=== PATIENT | male | born 1965 | race Caucasian/White ===

== ENCOUNTER → 2022-01-29 08:13 | Outpatient (REF) | payer OTHER, SELFPAY ==
--- NOTE | ~2022-01-29 | NM_ITS ---
Myocardial perfusion study Indication: Shortness of breath and abnormal EKG to evaluate for myocardial ischemia Technique: The patient was brought in for a Lexiscan perfusion study on 01/29/2022. Patient performed low-level exercise and was injected 0.4 mg of Lexiscan intravenously. Within a minute of injection, 25 mCi of sestamibi was given intravenously. Images were obtained using the SPECT gamma camera interlaced with the gating device. Images were obtained in supine position. Resting perfusion study was performed on 01/30/2022. Patient was administered 25 mCi of sestamibi intravenously at rest. Images were then obtained in supine position. Images obtained with and without CT attenuation. Total DLP 85 mGy-cm Images were processed with the software and compared side to side in short axis, horizontal long axis and vertical long axis views. Findings: The stress perfusion study showed non attenuated images show mildly to moderately reduced uptake in the inferior wall of the LV myocardium. Remainder of the LV myocardium is normally perfused. Attenuation corrected images shows diffusely reduced uptake in the entire LV myocardium with severely reduced uptake in the apex of the LV myocardium. This finding appeared to be due to technical issues.. The gated study shows low normal LV systolic function with calculated LVEF of 50%. LV cavity is mildly dilated size. The gated study shows reduced wall thickening and contraction of basal and mid inferior segments. Resting study shows non attenuated showed not much improvement in inferior wall of the LV myocardium.. Gating at rest reveals basal and mid inferior wall motion abnormality with visually estimated ejection fraction at greater than 50 %. The findings are consistent with fixed inferior wall defect on non attenuated images corresponding regional wall motion abnormality suggestive of nontransmural infarct of the segment. There is no clear reversible ischemia on non attenuated images. Attenuation corrected. NM/NM nery perf SPECT rest & str Impression: 1. Myocardial perfusion imaging study shows suggestion of nontransmural infarct of the basal and mid inferior wall 2. Gated LVEF is 50% 3. Transient ischemic dilatation not present but LV cavity is dilated EKG nondiagnostic for ischemia Recommend an echocardiogram to further evaluate the LV systolic function
--- NOTE | 2022-01-29 08:19 | CA_ITS ---
Acquisition Time: 2022-01-29 08:16:07 Total Exercise Time: 00:02:00 Test Indications: ABN EKG Medications: SEE CHART Protocol: LEXISCAN Max HR: 141 BPM 84% of Pred: 166 BPM Max BP: 152/078 mmHG Max Work Load: 1.0 METS Pharmacological stress test with Lexiscan injection, while laying supine, without anginal symptoms, with isolated PVCs with runs of bigeminy and trigeminy, with normotensive response to injection, with nondiagnostic EKG for ischemia. In recovery he reported headache that was treated with Aminphylline 75mg IVP with resolution of symptom. Nuclear images pending. Test reviewed with Dr Tomas. Note: pt had sinus tachycardia, with PVCs rate 120s at baseline. He reports hyperthyroidism. Call placed to PCP, Dr Reid who states that pt has risk factors for CAD and to complete test with pharmacological agent, no exercise. Order changed to pharmacological nuclear stress test. Referred By: Conrad Reid Overread By: SENG THOMSON
== END ==
LOC: HO.CARD 08:13
PROVIDERS: PCP Internal Medicine; Visit Provider Internal Medicine
DX: I49.9 Cardiac arrhythmia, unspecified (principal); R94.31 Abnormal electrocardiogram [ECG] [EKG]
CPT/HCPCS: 78452; 93017; A9500; J0280; J2785

== ENCOUNTER 2023-02-22 13:57 | Outpatient (REF) | payer OTHER, SELFPAY ==
--- NOTE | ~2023-02-22 | US_ITS ---
EXAMINATION: US RETROPERITONEAL LIMITED (RENAL ONLY) CLINICAL INFORMATION: Acute kidney failure. COMPARISON: None available. TECHNIQUE: Grayscale and color imaging of the kidneys FINDINGS: RIGHT KIDNEY: 14.7 x 7.8 x 7.7 cm (SAG x AP x TRV). The kidney is normal in size, contour, and echogenicity. Renal cortical thickness is normal. Innumerable cysts suggestive of polycystic kidney disease. Largest cyst measures 5 x 3.3 x 4.7 cm. Some cysts contain thin septations. No calculi. No hydronephrosis. LEFT KIDNEY: 16.6 x 8.9 x 9.5 cm (SAG x AP x TRV). The kidney is normal in size, contour, and echogenicity. Renal cortical thickness is normal. Innumerable cysts suggestive of polycystic kidney disease. Largest cyst measures 6.9 x 4.8 x 6.3 cm. Some cysts contain thin septations. No calculi. No hydronephrosis. US/US renal BI IMPRESSION: Enlarged kidneys and multiple bilateral renal cysts suggestive of polycystic kidney disease.
== END 2023-02-22 13:58 | disposition home or self-care (01) ==
LOC: HO.US 13:57
PROVIDERS: Visit Provider Internal Medicine Nephrology
DX: N17.9 Acute kidney failure, unspecified (principal)
CPT/HCPCS: 76775

== ENCOUNTER 2023-04-10 11:49 | Outpatient (REF) | payer OTHER, SELFPAY ==
--- NOTE | ~2023-04-10 | MR_ITS ---
EXAMINATION: MR ABDOMEN WITHOUT CONTRAST CLINICAL INFORMATION: Assess kidney volumes. COMPARISON: Renal ultrasound 02/22/2023 TECHNIQUE: MR abdomen is performed without gadolinium contrast. FINDINGS: LUNG BASES: The visualized lung bases are unremarkable. LIVER, GALLBLADDER, AND BILIARY TREE: The imaged liver is normal in size and contour. No biliary ductal dilatation is present. The gallbladder is contracted. PANCREAS: No ductal dilatation. SPLEEN: Not enlarged. ADRENAL GLANDS: No adrenal mass. KIDNEYS AND URETERS: The kidneys are enlarged with the parenchyma near completely replaced by numerous T2 hyperintense lesions and some T1 hyperintense lesions. Further characterization of these lesions is limited by lack of intravenous contrast. No hydronephrosis or perinephric stranding. The right kidney measures 15.2 x 15.2 x 5.6 cm for a volume of 745 mL. The left kidney measures 15.3 x 15.3 x 8.1 cm for a volume of 884 mL. GASTROINTESTINAL TRACT: No bowel obstruction. No ascites or fluid collection. LYMPH NODES: No bulky abdominal lymphadenopathy. VASCULAR: Normal caliber abdominal aorta. MR/MR abdomen wo con IMPRESSION: Right renal volume 745 mL. Left renal volume 884 mL.
== END 2023-04-10 11:50 | disposition home or self-care (01) ==
LOC: HO.MRI 11:49
PROVIDERS: PCP Internal Medicine; Visit Provider Internal Medicine Nephrology
DX: N18.32 Chronic kidney disease, stage 3b (principal)
CPT/HCPCS: 74181

== ENCOUNTER 2024-06-26 10:55 | Outpatient (REF) | payer OTHER, SELFPAY ==
--- NOTE | ~2024-06-26 | US_ITS ---
EXAMINATION: US RETROPERITONEAL LIMITED (RENAL ONLY) CLINICAL INFORMATION: CKD. COMPARISON: Renal ultrasound 02/22/2023. Correlated to MRI abdomen dated April 10, 2023. TECHNIQUE: Real-time imaging of the kidneys using grayscale and color Doppler technique. FINDINGS: RIGHT KIDNEY: 15 x 8 x 6 cm (SAG x AP x TRV). . Volume is 345 cc. Multifocal, different sizes, well-defined thin wall anechoic lesions throughout the renal cortex without nodular components were flow on color Doppler interrogation, the largest measures 5 cm. No solid lesion. No hydronephrosis. LEFT KIDNEY: 16 x 6 x 6 cm (SAG x AP x TRV). Volume is 295 cc. Multifocal, different sizes, well-defined anechoic lesions throughout the parenchyma, the largest measures 7 cm. No nodular components. No flow on color Doppler interrogation. Probable thin septations. No hydronephrosis. No gross solid mass . BLADDER: Fluid-filled Prevoid bladder volume is 185 mL. US/US renal BI IMPRESSION: Bosniak type II cysts, bilaterally. No hydronephrosis in the right kidney. Please refer to the MRI abdomen.. Electronically signed by: Jeremie Cordero MD 07/30/2024 03:47 PM EDT
== END 2024-06-26 10:56 | disposition home or self-care (01) ==
LOC: HO.US 10:55
PROVIDERS: PCP Internal Medicine; Visit Provider Internal Medicine Nephrology
DX: N18.32 Chronic kidney disease, stage 3b (principal)
CPT/HCPCS: 76775

== ENCOUNTER → 2024-06-26 10:57 | Outpatient (BNV) | payer OTHER, SELFPAY | PROVIDERS: PCP Internal Medicine; Visit Provider Radiology Diagnostic Radiology | DX: N18.32 Chronic kidney disease, stage 3b (principal) | CPT/HCPCS: 76775 ==

== ENCOUNTER 2025-04-07 09:04 | Outpatient (REF) | payer OTHER, SELFPAY ==
--- NOTE | ~2025-04-07 | MR_ITS ---
EXAMINATION: MR ABDOMEN WITHOUT THEN WITH IV CONTRAST HISTORY: CKD Stage 4 COMPARISON: Comparison is made with the prior examination dated 04/10/2023. Correlation is also made with a renal ultrasound dated 06/19/2024. TECHNIQUE: Axial in and out of phase T1-weighted gradient echo, axial diffusion weighted, and axial and coronal HASTE T2 with fat saturation images were obtained through the abdomen. Subsequently, fat suppressed axial and coronal T1-weighted images were obtained after the intravenous administration of 8.5 mL Gadavist. Subtraction imaging was also performed. FINDINGS: Liver: There is no loss of signal intensity in the liver on opposed phase imaging to suggest steatosis. There is no enhancing liver mass. The hepatic and portal veins are patent. There is no intrahepatic biliary dilatation. Gallbladder/biliary tree: No gallstones are identified. The common bile duct is normal in caliber. No intraluminal filling defects are identified to suggest choledocholithiasis. Spleen: The spleen is unremarkable. Pancreas: There is pancreas divisum. The pancreas is otherwise unremarkable. There is no enhancing pancreatic mass. The pancreatic duct is normal in caliber. Adrenals: The adrenal glands are unremarkable. Kidneys: Again seen are innumerable bilateral renal cysts. These measure up to 4.3 cm on the right and 5.8 cm on the left. Many of the cysts are hypointense on T2-weighted images and hyperintense on T1-weighted images, consistent with proteinaceous or hemorrhagic content. No definite nodular enhancement of the cysts is seen. Again noted is moderate to marked renal parenchymal thinning. The appearance is similar to the prior study. There is no hydronephrosis. The right kidney measures approximately 14.2 x 10.4 x 11.9 cm. The left kidney measures approximately 12.7 x 11.1 x 10.7 cm. Lymph nodes: There is no retroperitoneal lymphadenopathy in the upper abdomen. Fluid: There is no ascites in the upper abdomen. Visualized bowel: The visualized bowels loops are unremarkable in appearance. Visualized bones: The visualized bones demonstrate normal marrow signal intensity. MR/MR abdomen wo/w con IMPRESSION: 1. Innumerable bilateral renal cysts, many of which contain proteinaceous or hemorrhagic content. No definite associated contrast enhancement. 2. Pancreas divisum. Electronically signed by: Sudheer Yu MD 04/07/2025 10:27 AM EDT RP
--- OUTSIDE RECORDS SUMMARY | 2025-04-07 09:20 | XMS_ITS | Clinical Summary ---
Author Organization [facility]ly [facility] Address [address] [place] [address] Care Team Providers Care Jig Builder Helper Name Role Phone Conrad Reid MD Primary Care Provider [phone] Social History Tobacco Use Types Packs/Day Years Used Date Smoking Tobacco: Never Assessed Sex and Gender Information Value Date Recorded Sex Assigned at Not on file Legal Sex Male 5:05 PM EDT Gender Identity Not on file Sexual Orientation Not on file Plan of Treatment Health Maintenance Due Date Last Done Comments Hepatitis C Virus Screening 1965 HIV Screening 02/22/1980 DTaP/Tdap/Td Vaccines (1 - Tdap) 1986 Hepatitis B Vaccines (1 of 3 - 19+ 3-dose series) 01/29 Pneumococcal Vaccines 50+ (1 of 1 - PCV) 2017 Zoster (Shingles) Vaccine (1 of 2) 2017 COVID-19 Vaccine (1 - 2023- season) 2024 Care Teams Jig Builder Helper Relationship Specialty Start Date End Date Conrad Reid MD PCP - General Internal Medicine 03/14/23
--- OUTSIDE RECORDS SUMMARY | 2025-04-07 09:20 | XMS_ITS | Encounter Summary ---
Author Organization [facility] Address Unknown Care Team Providers Care Rn Eligibility Name Role Phone Conrad Reid MD Primary Care Provider [phone] Reason for Visit * Reason Comments Medication Refill Encounter Details Date Type Department Care Team (Late st Contact Info) Description 01/01/2023 Refill [facility] [address] [address] Zachary Gilliam MD [address] [place] [phone] Medication Refill Social History Tobacco Use Types Packs/Day Years Used Date Smoking Tobacco: Never Smokeless Tobacco: Never Alcohol Use Standard Drinks/Week Comments Yes 2 (1 standard drink = 0.6 oz pur e alcohol) Sex and Gender Information Value Date Recorded Sex Assigned at Male 02/05/2022 7:42 AM EDT Legal Sex Male 8:25 AM EST Gender Identity Male 02/05/2022 7:42 AM EDT Sexual Orientation Straight 02/05/2022 7: 42 AM EDT Occupation Industry Job Start Date Job End Date [employer] [place] Not on file Not on file Not on file documented as of this encounter Plan of Treatment Upcoming Encounters Date Type Department Care Team (Late st Contact Info) Description 04/13/2025 2:00 PM EDT Follow [facility] [address] [address] Kate Pedroza MD [address] [place] [phone] 10/07/2025 8:45 AM EST Follow [facility] [place] [facility] [address] [address] Zachary Gilliam MD [address] [place] [phone] documented as of this encounter Visit Diagnoses Not on filedocumented in this encounter Care Teams Rn Eligibility Relationship Specialty Start Date End Date Conrad Reid MD [address] [place] [phone] PCP - General Internal Medicine 02/23/22 documented as of this encounter
== END 2025-04-07 09:05 | disposition home or self-care (01) ==
LOC: HO.MRI 09:04
PROVIDERS: Visit Provider Internal Medicine Nephrology
DX: N18.4 Chronic kidney disease, stage 4 (severe) (principal)
CPT/HCPCS: 74183; A9585

== ENCOUNTER → 2025-04-07 09:33 | Outpatient (BNV) | payer OTHER, SELFPAY | PROVIDERS: Visit Provider Radiology Diagnostic Radiology | DX: N28.1 Cyst of kidney, acquired (principal); Q45.3 Other congenital malformations of pancreas and pancreatic duct | CPT/HCPCS: 74183 ==